=== PATIENT | female | born 1960 | race Caucasian/White ===

== ENCOUNTER 2017-04-18 18:38 | Emergency (ER) | payer OTHER ==
[~2017-04-18] VITALS: Ht 165.1 cm; Wt 68.0 kg
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
[2017-04-18] MEDS ORDERED: TDAP [DIPH/PERTUSSIS/TET] 0.5 ML VIAL IM ONE ×2 (19:00→19:25)
--- NOTE | 2017-04-18 19:18 | NUR ---
REPORT RECEIVED FROM BELEN MELCHOR FOR [facility].
--- NOTE | 2017-04-18 19:48 | NUR ---
Patient discharged to home in stable condition. Written and verbal after care instructions given. Patient verbalizes understanding of instruction. Patient ambulatory with a steady gait.
[2017-04-18 19:49] VITALS: BP 123/74
== END 2017-04-18 19:50 | disposition home or self-care (01) ==
LOC: ER 18:41
DX: S51.812A Laceration without foreign body of left forearm, initial encounter (principal); Z98.890 Other specified postprocedural states; W26.8XXA Contact with other sharp object(s), not elsewhere classified, initial encounter; Y93.89 Activity, other specified; Y92.89 Other specified places as the place of occurrence of the external cause; Y99.8 Other external cause status
CPT/HCPCS: 12001; 90471; 90715; 99283; A4606; A6402; A6403; Z7610

== ENCOUNTER 2017-04-23 20:22 | Emergency (ER) | payer OTHER ==
[~2017-04-23] VITALS: Ht 165.1 cm; Wt 68.0 kg
[2017-04-23 20:30] VITALS: BP 138/68
== END 2017-04-23 20:50 | disposition home or self-care (01) ==
LOC: ER 20:30
DX: T78.40XA Allergy, unspecified, initial encounter (principal); S51.812D Laceration without foreign body of left forearm, subsequent encounter; Z98.890 Other specified postprocedural states; X58.XXXA Exposure to other specified factors, initial encounter; Y93.89 Activity, other specified; Y92.89 Other specified places as the place of occurrence of the external cause; Y99.8 Other external cause status
CPT/HCPCS: 99283; A4606; Z7610; Z7502

== ENCOUNTER 2017-04-28 00:10 | Emergency (ER) | payer OTHER ==
[~2017-04-28] VITALS: Ht 165.1 cm; Wt 68.0 kg
[2017-04-28 00:15] VITALS: BP 150/90
== END 2017-04-28 00:34 | disposition home or self-care (01) ==
LOC: ER 00:10
DX: S51.812D Laceration without foreign body of left forearm, subsequent encounter (principal); X58.XXXD Exposure to other specified factors, subsequent encounter; R21 Rash and other nonspecific skin eruption
CPT/HCPCS: A4606; Z7502; Z7610

== ENCOUNTER 2024-03-03 01:55 | Inpatient (IN) | payer MEDICAID, OTHER ==
[~2024-03-03] VITALS: Ht 165.1 cm; Wt 76.4 kg
[2024-03-03 03:49] LABS: BASOPHILS # (AUTO) 0.1 K/uL (0.0-0.2); BASOPHILS % (AUTO) 1.1 % (0.0-2.0); EOSINOPHILS # (AUTO) 0.7 K/uL (0.0-0.7); EOSINOPHILS % (AUTO) 8.2 % (0.0-6.0); HEMATOCRIT 41 % (33-45); HEMOGLOBIN 13.7 g/dL (11.5-14.8); LYMPHOCYTES # (AUTO) 2.3 K/uL (0.8-4.8); LYMPHOCYTES % (AUTO) 26.3 % (20.0-44.0); MEAN CORPUSCULAR HEMOGLOBIN 30 PG (26.0-33.0); MEAN CORPUSCULAR HGB CONC 33 g/dl (31.0-36.0); MEAN CORPUSCULAR VOLUME 89 fL (82-100); MONOCYTES # (AUTO) 0.6 K/uL (0.1-1.30); MONOCYTES % (AUTO) 6.8 % (2.0-12.0); NEUTROPHILS % (AUTO) 57.6 % (43.0-81.0); PLATELET COUNT (AUTO) 290 K/uL (150-450); RED BLOOD CELL COUNT(AUTO) 4.62 MIL/uL (4.0-5.2); WHITE BLOOD COUNT (AUTO) 8.7 K/uL (4.3-11.0)
[2024-03-03 04:00] LABS: CALCIUM, SERUM 9.1 mg/dL (8.5-10.1); CREATININE 0.8 mg/dL (0.6-1.3)
[2024-03-03 04:13] LABS: ALBUMIN 3.5 g/dL (3.4-5.0); BILIRUBIN,TOTAL 0.3 mg/dL (0.2-1.0); TOTAL PROTEIN, SERUM 6.7 g/dL (6.4-8.2)
[2024-03-03] MEDS ORDERED: ONDANSETRON HCL/PF 4 MG/2 ML VIAL ONE (04:17)
[2024-03-03] MEDS ORDERED: MORPHINE SULFATE INJ 2 MG/ML DISP.SYRIN ONE (04:17)
[2024-03-03] MEDS: MORPHINE SULFATE INJ 2 MG/ML DISP.SYRIN IV ONE (04:28)
[2024-03-03] MEDS: ONDANSETRON HCL/PF - ER 4 MG/2 ML VIAL IV ONE (04:28)
[2024-03-03] MEDS: ASPIRIN 325 MG TABLET PO ONE (07:00)
[2024-03-03] MEDS ORDERED: ASPIRIN 325 MG TABLET ONE (07:07)
[2024-03-03] MEDS ORDERED: ASPI-1420 PO (07:25)
[2024-03-03] MEDS ORDERED: CLOPIDOGREL BISULFATE 75 MG TABLET ONE (07:36)
[2024-03-03] MEDS: CLOPIDOGREL BISULFATE 300 MG TABLET PO ONE (07:44)
[2024-03-03] MEDS ORDERED: HEPARIN INFUSION/D5W 500 ML IV PRN (08:30)
[2024-03-03 08:49] LABS: INR 0.93 (0.91-1.10); PARTIAL THROMBOPLASTIN TIME 28.8 SEC (24.3-34.3); PROTHROMBIN TIME 9.9 SECS (9.2-11.1)
[2024-03-03] MEDS ORDERED: MELO-107 PO (09:47)
[2024-03-03] MEDS ORDERED: CHOL200059 PO (09:47)
[2024-03-03] MEDS ORDERED: ATOR20TA PO (09:47)
[2024-03-03 10:13] LABS: APPEARANCE,URINE CLEAR (CLEAR); BILIRUBIN,URINE NEGATIVE (NEGATIVE); BLOOD, URINE NEGATIVE Ery/uL (NEGATIVE); COLOR,URINE YELLOW (YELLOW); KETONES,URINE NEGATIVE (NEGATIVE); LEUKOCYTE ESTERASE ,URINE NEGATIVE (NEGATIVE); NITRITE, URINE NEGATIVE (NEGATIVE); PROTEIN,URINE NEGATIVE (NEGATIVE); UGLUCOSE NEGATIVE (NEGATIVE); UROBILINOGEN,URINE 0.2 EU/dL (0.2)
[2024-03-03] MEDS ORDERED: ENOXAPARIN SODIUM 80 MG/0.8 ML DISP.SYRIN SQ ONE (10:32)
[2024-03-03] MEDS: ENOXAPARIN SODIUM 80 MG/0.8 ML DISP.SYRIN SQ SCH (10:38)
[2024-03-03 11:18] LABS: BARBITURATE, URINE NEGATIVE (NEGATIVE); BENZODIAZEPINE, URINE NEGATIVE (NEGATIVE); CANNABINOID, URINE NEGATIVE (NEGATIVE); COCCAINE, URINE NEGATIVE (NEGATIVE); OPIATE, URINE NEGATIVE (NEGATIVE); PHENCYCLIDINE SCREEN,URINE NEGATIVE (NEGATIVE)
[2024-03-03 11:19] LABS: AMPHETAMINE, URINE POSITIVE (NEGATIVE)
[2024-03-03 12:00] VITALS: BP 113/75; TEMP 97.5; O2SAT 98
[2024-03-03] MEDS: METOPROLOL TARTRATE 50 MG TABLET PO SCH (13:10)
[2024-03-03 16:00] VITALS: BP 93/56; TEMP 97.8; O2SAT 97
[2024-03-03] MEDS ORDERED: IOHEXOL-350 100 ML VIAL IV ONE (16:34)
[2024-03-03] MEDS ORDERED: CT SWABBABLE VALVE TRANS SET 1 EA INFUS.SET MC ONE (16:34)
[2024-03-03] MEDS ORDERED: IV NS 0.9% 250 ML IV ONE (16:35)
[2024-03-03] MEDS ORDERED: NITROGLYCERIN 0.4 MG/TAB BOTTLE ONE (17:04)
[2024-03-03] MEDS: NITROGLYCERIN 0.4 MG/TAB BOTTLE SL ONE (17:06)
[2024-03-03 20:00] VITALS: BP 90/62; TEMP 97.7; O2SAT 97
[2024-03-04] VITALS: BP 106/72; TEMP 98.1; O2SAT 96
[2024-03-04 04:00] VITALS: BP 133/60; TEMP 99; O2SAT 96
[2024-03-04 08:00] VITALS: BP 101/63; TEMP 99.1; O2SAT 96
[2024-03-04] MEDS: ATORVASTATIN 40 MG TABLET PO SCH (09:15)
[2024-03-04] MEDS: ASPIRIN 81 MG TAB.CHEW PO SCH (09:15)
[2024-03-04 11:54] LABS: BASOPHILS # (AUTO) 0.1 K/uL (0.0-0.2); BASOPHILS % (AUTO) 1.2 % (0.0-2.0); EOSINOPHILS # (AUTO) 0.7 K/uL (0.0-0.7); EOSINOPHILS % (AUTO) 7.2 % (0.0-6.0); HEMATOCRIT 41 % (33-45); HEMOGLOBIN 13.7 g/dL (11.5-14.8); LYMPHOCYTES # (AUTO) 2.6 K/uL (0.8-4.8); LYMPHOCYTES % (AUTO) 27.3 % (20.0-44.0); MEAN CORPUSCULAR HEMOGLOBIN 30 PG (26.0-33.0); MEAN CORPUSCULAR HGB CONC 33 g/dl (31.0-36.0); MEAN CORPUSCULAR VOLUME 89 fL (82-100); MONOCYTES # (AUTO) 0.6 K/uL (0.1-1.30); MONOCYTES % (AUTO) 6.7 % (2.0-12.0); NEUTROPHILS # (AUTO) 5.6 K/uL (1.8-8.9); NEUTROPHILS % (AUTO) 57.6 % (43.0-81.0); PLATELET COUNT (AUTO) 288 K/uL (150-450); RED BLOOD CELL COUNT(AUTO) 4.62 MIL/uL (4.0-5.2); RED CELL DISTRIBUTION WIDTH 13.9 % (11.5-15.0); WHITE BLOOD COUNT (AUTO) 9.7 K/uL (4.3-11.0)
[2024-03-04 12:00] VITALS: BP 105/63; TEMP 97.9; O2SAT 96
[2024-03-04 12:03] LABS: CREATININE 0.8 mg/dL (0.6-1.3); POTASSIUM 4.2 mmol/L (3.5-5.1)
[2024-03-04 12:08] LABS: ALBUMIN 3.1 g/dL (3.4-5.0); BILIRUBIN,TOTAL 0.4 mg/dL (0.2-1.0); MAGNESIUM 2.1 mg/dL (1.8-2.4); PHOSPHORUS 3.4 mg/dL (2.5-4.9); TOTAL PROTEIN, SERUM 6.4 g/dL (6.4-8.2)
[2024-03-04 12:26] VITALS: BP 61/105
== END 2024-03-04 15:27 | disposition home or self-care (01) | DRG 190 ==
LOC: ER 03:35 → TELE1 11:02
DX: I21.4 Non-ST elevation (NSTEMI) myocardial infarction (principal); E78.5 Hyperlipidemia, unspecified; I10 Essential (primary) hypertension; F17.210 Nicotine dependence, cigarettes, uncomplicated; Z71.6 Tobacco abuse counseling
CPT/HCPCS: 36415; 71045-TC; 75574; 80053-TC; 80061-TC; 83735-TC; 83880; 84100-TC; 84484-TC; 85025-TC; 85378-TC; 85610-TC; 85730-TC; 93307-TC; G0378; J1650; J2270; J2405; J7050; Q9967